=== PATIENT | female | born 1995 | race African-American/Black ===

== ENCOUNTER 2021-12-15 20:16 | Emergency (ER) | payer BC, SELFPAY ==
[2021-12-15 20:17] VITALS: BP 118/70; PULSE 63; RESP 16; TEMP 36.4; O2SAT 100
--- NOTE | 2021-12-15 20:45 | ED.EYEPROB ---
HPI - Eye Problem General Chief complaint: Eye Problems Stated complaint: left eye itching Time Seen by Provider: 12/15/21 20:24 Source: patient History of Present Illness HPI Narrative: Patient presents with left eye irritation and itching. Symptoms been present for approximately 2 weeks intermittently. She also reports she felt like there was a film on her eye. She attempted Clear Eyes which alleviated her symptoms but she came to the ER for further evaluation. She denies any trauma to the area denies any congestion she denies any known sick contacts or close contacts with similar symptoms she denies any fevers, cough. She does report a history of allergies during the summer does not remember what her symptoms they are. She denies any changes in vision double vision or blurry vision. Reports mild increased clear drainage from the eye. Related Data Allergies Allergy/AdvReac Type Severity Reaction Status Date / Time No Known Allergies Allergy Verified 12/15/21 20:19 Review of Systems Review of Systems: CONSTITUTIONAL: Denies fever, chills, or sweats. EYES: Denies visual changes. ENT: Denies rhinorrhea, congestion, sore throat, or otalgia. CARDIOVASCULAR: Denies chest pain, palpitations, or edema. RESPIRATORY: Denies cough or dyspnea. GASTROINTESTINAL: Denies abdominal pain, nausea, vomiting, or diarrhea. GENITOURINARY: Denies dysuria or hematuria. SKIN: Denies rash or itching. MUSCULOSKELETAL: Denies back pain, joint pain, or myalgia. NEUROLOGIC: Denies headache, numbness, dizziness, or weakness. PSYCHIATRIC: Denies anxiety or depression. All systems reviewed & are unremarkable except as noted in HPI and below PMFSH Past Medical History Medical History Healthy female Surgical History Surgical History No history of previous surgery Social History Social History Smoking status: Never smoker Gender identity (if verbalized by the patient): Female Exam Narrative: GENERAL: Well-appearing, well-nourished, and in no acute distress. HEAD: Normocephalic, atraumatic. EYES: PERRLA and EOMI. there is no conjunctival injection there is no tenderness around the orbits bilaterally anterior chamber is quiet bilaterally. ENT: Nares clear, no rhinorrhea or epistaxis. Mucous membranes moist. NECK: Supple. No masses. No JVD EXTREMITIES: Normal range of motion. No edema. SKIN: Warm, dry, no rash. NEURO: No focal deficits. Alert and oriented x3. PSYCH: Normal mood and affect. Course Vital Signs Vital signs: Vital Signs Temperature 36.4 C 12/15/21 20:17 Pulse Rate 63 12/15/21 20:17 Respiratory Rate 16 12/15/21 20:17 Blood Pressure 118/70 12/15/21 20:17 Pulse Oximetry 100 12/15/21 20:17 Temperature 36.4 C 12/15/21 20:17 Pulse Rate 63 12/15/21 20:17 Respiratory Rate 16 12/15/21 20:17 Blood Pressure 118/70 12/15/21 20:17 Pulse Oximetry 100 12/15/21 20:17 MDM - Eye Problem MDM Narrative Medical decision making narrative: H&P as above, vss, pt looks clinically well, exam normal ocular exam, labs/img considered, symptomatic relief available as needed, on reevaluation pt continues to looks clinically well. Suspect allergic conjunctivitis, dns bacterial infection, corneal abrasion, corneal ulcer, iritis. plan to tx/monitor as op w/ pcm f/u findings/plan discussed with pt, pt agree/comfortable with plan, return precautions given Discharge Plan Discharge Clinical Impression: Eye discomfort Qualifiers: Laterality: left Qualified Code(s): H57.12 - Ocular pain, left eye Patient Disposition: Home, Self-Care Condition: Improved Instructions: Antibiotic Form Additional Instructions: Please return if your symptoms worsen or fail to improve. If you develop a fever, can not eat/drink anything or if you have any other concerns.
== END 2021-12-15 21:00 | disposition home or self-care (01) ==
PROVIDERS: Emergency Provider Emergency Medicine; PCP Nurse Practitioner Adult Health
DX: H57.12 Ocular pain, left eye (principal)
CPT/HCPCS: 99282